=== PATIENT | female | born 1975 | race Caucasian/White ===

== ENCOUNTER → 2019-06-17 | Outpatient (CLI) | payer BC, OTHER ==
--- NOTE | 2019-06-18 15:07 | PATH ---
[facility] [address] [place] [address] PATHOLOGY RPT PROCEDURE Name: GAVIOTA HERRMANN Room #: [facility] Mónica.#: [id number] Admission: 06/17/19 Date of : 75 Discharge: Report #: [id number] Path Case #: [id number] [facility] Accession Number: [id number] . 01 Material submitted: . colon - POLYP AT ASCENDING COLON. Modifiers: ascending . 01 Clinical history: . Pre-OP DX: Anemia Post-OP DX: Polyp and hemorrhoids . 02 Diagnosis: Colon, ascending, biopsy: - Hyperplastic polyp. (SKM:pit; 06/18/2019) [facility] 06/18/2019 1147 Local . 02 Electronically signed: . Etienne Graves MD, Pathologist NPI- [id number] . 01 Gross description: . Received in formalin labeled "Gaviota Herrmann, polyp at ascending colon," is a single segment of root soft tissue measuring 0.5 cm in maximum dimension. The specimen is entirely submitted in cassette A1. (TSD; 06/17/2019) TOB/TOB 06/17/2019 1901 Local . 02 Pathologist provided ICD-10: K63.5 . 02 CPT . 661420 Specimen Comment: A courtesy copy of this report has been sent to [phone] Specimen Comment: Report sent to / DR MOSQUEDA Performed at: 01 [facility] [address] [place] [address], [place] [id number] MD Zachary Paredes MD Phone: [phone] Performed at: [address] [id number] MD Leonarda Claudio MD Phone: [phone]
== END | disposition home or self-care (01) ==
LOC: GI 06:12
DX: D50.9 Iron deficiency anemia, unspecified (principal); K63.5 Polyp of colon; K57.30 Diverticulosis of large intestine without perforation or abscess without bleeding; K64.8 Other hemorrhoids; E03.9 Hypothyroidism, unspecified; F32.9 Major depressive disorder, single episode, unspecified; F41.9 Anxiety disorder, unspecified; Z86.010 Personal history of colon polyps; Z98.890 Other specified postprocedural states; Z88.8 Allergy status to other drugs, medicaments and biological substances; Z79.899 Other long term (current) drug therapy
CPT/HCPCS: 62110; 62900